=== PATIENT | male | born 1940 | race Caucasian/White ===

== ENCOUNTER 2020-10-04 08:35 | Day surgery (SDC) | payer OTHER ==
[2020-10-04] VITALS (8 sets, daily range): BP systolic 115–151; BP diastolic 41–92
[~2020-10-04] VITALS: Ht 167.6 cm; Wt 106.1 kg
[~2020-10-04 08:35] MED LIST: SODIUM CHLORIDE 0.9% 1000ML 1,000 ML IV ONE
[2020-10-04] MEDS ORDERED: MONT10TA32 PO (09:34)
[2020-10-04] MEDS ORDERED: GABA300C PO (09:34)
[2020-10-04] MEDS ORDERED: SIMV-43 PO (09:34)
[2020-10-04] MEDS ORDERED: TAMS-1 PO (09:34)
[2020-10-04] MEDS ORDERED: HYDR-4377 PO (09:34)
[2020-10-04] MEDS ORDERED: MULT-1367 PO (09:34)
[2020-10-04] MEDS ORDERED: LEVO125C4 PO (09:34)
[2020-10-04] MEDS ORDERED: PSYL0.525 PO (09:34)
[2020-10-04] MEDS ORDERED: PANT40TA54 PO (09:34)
[2020-10-04] MEDS ORDERED: FURO40TA5 PO (09:34)
[2020-10-04] MEDS ORDERED: VIT1CAPS47 PO (09:34)
[2020-10-04] MEDS ORDERED: LISI10TA24 PO (09:34)
[2020-10-04] MEDS ORDERED: TRAZ-185 PO (09:34)
[2020-10-04] MEDS ORDERED: FEXO-59 PO (09:34)
[2020-10-04] MEDS ORDERED: DOCU100C33 PO (09:34)
[2020-10-04] MEDS ORDERED: FAMO20TA8 PO (09:34)
[2020-10-04] MEDS ORDERED: AEC81 PO (09:34)
[2020-10-04] MEDS ORDERED: METO25TA6 PO (09:34)
[2020-10-04] MEDS ORDERED: PROPOFOL 10 MG/ML 20ML VIAL IV ONE (10:49)
== END 2020-10-04 11:45 | disposition home or self-care (01) ==
LOC: ENDO 08:35 → DAH 08:35 → ENDO 11:45
PROVIDERS: ATTEND Internal Medicine Gastroenterology
DX: R13.12 Dysphagia, oropharyngeal phase (principal); K31.89 Other diseases of stomach and duodenum; Z20.822 Contact with and (suspected) exposure to COVID-19; I10 Essential (primary) hypertension; E78.5 Hyperlipidemia, unspecified; I25.10 Atherosclerotic heart disease of native coronary artery without angina pectoris; E03.9 Hypothyroidism, unspecified; M19.90 Unspecified osteoarthritis, unspecified site; D64.9 Anemia, unspecified; Z95.1 Presence of aortocoronary bypass graft; Z90.89 Acquired absence of other organs; Z87.891 Personal history of nicotine dependence; Z79.890 Hormone replacement therapy; Z79.82 Long term (current) use of aspirin; Z79.84 Long term (current) use of oral hypoglycemic drugs; Z86.73 Personal history of transient ischemic attack (TIA), and cerebral infarction without residual deficits; Z86.010 Personal history of colon polyps; Z95.5 Presence of coronary angioplasty implant and graft; Z98.49 Cataract extraction status, unspecified eye
CPT/HCPCS: 43239; 82948; 93005; A4215; A4221; A4223; A4606; A4620; A4657; A4663; C9803; J2704; J7030; U0003

== ENCOUNTER 2022-07-14 12:37 | Inpatient (IN) | payer OTHER ==
[~2022-07-14] VITALS: Ht 165.1 cm; Wt 85.4 kg
[~2022-07-14 12:37] MED LIST changes: +AEC81 PO; +DOCU100C33 PO; +FAMO20TA8 PO; +FEXO-263 PO; +FURO40TA5 PO; +GABA300C PO; +HYDR-4377 PO; +LEVO125C4 PO; +LISI10TA24 PO; +METO25TA6 PO; +MONT-39 PO; +MULT-1367 PO; +PANT40TA54 PO; +PSYL0.525 PO; +SIMV-43 PO; -SODIUM CHLORIDE 0.9% 1000ML 1,000 ML IV ONE; +TAMS-1 PO; +TRAZ-185 PO; +VIT1CAPS47 PO
[2022-07-14] MEDS ORDERED: KETOROLAC 15MG/ML VIAL (15MG/ML) IV ONE (15:00)
[2022-07-14 15:09] LABS: BASOPHILS % (AUTO) 0.3 % (0.0-5.0); EOSINOPHILS % (AUTO) 0.7 % (0.0-8.0); HEMATOCRIT 29.2 % (42-54); LYMPHOCYTES % (AUTO) 18.4 % (21.0-51.0); MEAN CORPUSCULAR HEMOGLOBIN 36.7 pg (27.0-33.0); MEAN CORPUSCULAR HGB CONC 34.6 g/dL (32.0-36.0); MEAN CORPUSCULAR VOLUME 106.2 fL (79-99); MONOCYTES % (AUTO) 12.2 % (3.0-13.0); NEUTROPHILS % (AUTO) 67.9 % (40.0-77.0); PLATELET COUNT (AUTO) 356 K/uL (130-400); RED BLOOD CELL COUNT(AUTO) 2.75 MIL/uL (4.50-6.20); RED CELL DISTRIBUTION WIDTH 15.4 % (11.0-15.5); WHITE BLOOD COUNT (AUTO) 8.9 K/uL (4.8-10.8)
[2022-07-14 15:29] LABS: ALBUMIN 2.9 g/dL (3.5-5.0); CREATININE 1.4 mg/dL (0.5-1.5); CRP QUANTITATIVE 145.9 mg/L (0.00-9.0); TOTAL PROTEIN, SERUM 7.4 g/dL (6.0-8.3)
[2022-07-14 15:33] LABS: POTASSIUM 2.7 mmol/L (3.5-5.1)
[2022-07-14] MEDS ORDERED: 0.9%NACL 1000ML 1,000 ML IV ONE (16:00)
[2022-07-14] MEDS ORDERED: POTASSIUM BICARB/CIT AC 25 MEQ TABLET.EFF PO ONE (18:00)
[2022-07-14] MEDS ORDERED: DEXTROSE 50%-WATER 50 ML DISP.SYRIN IV PRN (19:30)
[2022-07-14] MEDS ORDERED: DIPHENHYDRAMINE HCL 25 MG CAPSULE PO PRN (19:30)
[2022-07-14] MEDS: 0.9%NACL 1000ML 1,000 ML IV SCH (19:30)
[2022-07-14] MEDS ORDERED: HYDRALAZINE 20MG/ML VIAL IV PRN (19:30)
[2022-07-14] MEDS ORDERED: ONDANSETRON 4MG INJ IV PRN (19:30)
[2022-07-14] MEDS ORDERED: MAG/ALUM/SIMETH 30 ML UDCUP PO PRN (19:30)
[2022-07-14] MEDS ORDERED: GLUCAGON 1MG KIT 1 MG ML IM PRN (19:30)
[2022-07-14] MEDS ORDERED: ACETAMINOPHEN 325 MG TAB PO PRN ×2 (19:30)
[2022-07-14] MEDS ORDERED: LACTULOSE 20 GM/30 ML UDCUP PO PRN (19:30)
[2022-07-14] MEDS ORDERED: MORPHINE 2 MG SYG IV PRN (20:00)
[2022-07-14 20:33] LABS: APPEARANCE,URINE CLEAR (CLEAR); BILIRUBIN,URINE NEGATIVE (NEGATIVE); COLOR,URINE YELLOW (YELLOW); GLUCOSE, URINE (UA) NEGATIVE (NEGATIVE); KETONES,URINE NEGATIVE (NEGATIVE); LEUKOCYTE ESTERASE ,URINE NEGATIVE Leu/uL (NEGATIVE); NITRATE,URINE NEGATIVE (NEGATIVE); OCCULT BLOOD,URINE SMALL (NEGATIVE); PH,URINE 5.5 (5.0-8.0); PROTEIN,URINE NEGATIVE (NEGATIVE)
[2022-07-14] MEDS: INSULIN HUMULIN R 100 UNIT/ML 3ML SQ SCH (21:00)
[2022-07-14] MEDS: FAMOTIDINE 20MG TAB PO SCH (21:00)
[2022-07-14] MEDS ORDERED: FUROSEMIDE 40MG VIAL IV SCH (21:30)
[2022-07-14] MEDS: FUROSEMIDE 40MG VIAL IV SCH (22:00)
[2022-07-15 03:30] VITALS: BP 137/52
[2022-07-15] MEDS: 0.9%NACL 1000ML 1,000 ML IV SCH ×2 (03:30→16:38)
[2022-07-15 05:38] LABS: HEMATOCRIT 30.7 % (42-54); MEAN CORPUSCULAR HEMOGLOBIN 37.1 pg (27.0-33.0); MEAN CORPUSCULAR HGB CONC 34.5 g/dL (32.0-36.0); MEAN CORPUSCULAR VOLUME 107.3 fL (79-99); RED BLOOD CELL COUNT(AUTO) 2.86 MIL/uL (4.50-6.20); RED CELL DISTRIBUTION WIDTH 15.2 % (11.0-15.5); WHITE BLOOD COUNT (AUTO) 8.8 K/uL (4.8-10.8)
[2022-07-15 05:53] LABS: CREATININE 1.5 mg/dL (0.5-1.5); MAGNESIUM 2.5 mg/dL (1.80-2.40); POTASSIUM 3.5 mmol/L (3.5-5.1)
[2022-07-15] MEDS: INSULIN HUMULIN R 100 UNIT/ML 3ML SQ SCH ×4 (07:30→21:00)
[2022-07-15 08:15] VITALS: BP 127/52
[2022-07-15] MEDS: ENOXAPARIN SODIUM 40 MG/0.4 ML SYRINGE SQ SCH (09:48)
[2022-07-15] MEDS: FUROSEMIDE 40MG VIAL IV SCH (09:48)
[2022-07-15 12:18] VITALS: BP 142/54
[2022-07-15 16:00] VITALS: BP 103/62
[2022-07-15 20:00] VITALS: BP 93/45
[2022-07-15] MEDS: FAMOTIDINE 20MG TAB PO SCH (21:53)
[2022-07-16] VITALS (8 sets, daily range): BP systolic 89–145; BP diastolic 48–63
[2022-07-16] MEDS: INSULIN HUMULIN R 100 UNIT/ML 3ML SQ SCH ×4 (06:26→20:48)
[2022-07-16] MEDS: FUROSEMIDE 40MG VIAL IV SCH (09:30)
[2022-07-16] MEDS ORDERED: VANCOMYCIN PROTOCOL PER PHARMACY IV SCH (09:30)
[2022-07-16] MEDS: ENOXAPARIN SODIUM 40 MG/0.4 ML SYRINGE SQ SCH (09:30)
[2022-07-16] MEDS: ASPIRIN 81MG CHEW TAB PO SCH (11:14)
[2022-07-16] MEDS: SACUBITRIL/VALSARTAN 1 EACH TABLET PO SCH (20:47)
[2022-07-16] MEDS: FAMOTIDINE 20MG TAB PO SCH (20:48)
[2022-07-17 04:36] VITALS: BP 138/84
[2022-07-17] MEDS: INSULIN HUMULIN R 100 UNIT/ML 3ML SQ SCH ×4 (05:25→20:45)
[2022-07-17 06:08] LABS: BASOPHILS % (AUTO) 0.7 % (0.0-5.0); EOSINOPHILS % (AUTO) 3.5 % (0.0-8.0); HEMATOCRIT 35.2 % (42-54); LYMPHOCYTES % (AUTO) 18.5 % (21.0-51.0); MEAN CORPUSCULAR HEMOGLOBIN 37.1 pg (27.0-33.0); MEAN CORPUSCULAR HGB CONC 35.2 g/dL (32.0-36.0); MEAN CORPUSCULAR VOLUME 105.4 fL (79-99); MONOCYTES % (AUTO) 9.9 % (3.0-13.0); NEUTROPHILS % (AUTO) 66.9 % (40.0-77.0); PLATELET COUNT (AUTO) 507 K/uL (130-400); RED BLOOD CELL COUNT(AUTO) 3.34 MIL/uL (4.50-6.20); RED CELL DISTRIBUTION WIDTH 14.8 % (11.0-15.5); WHITE BLOOD COUNT (AUTO) 9.5 K/uL (4.8-10.8)
[2022-07-17 06:12] LABS: CREATININE 1.6 mg/dL (0.5-1.5); POTASSIUM 3.8 mmol/L (3.5-5.1)
[2022-07-17 08:00] VITALS: BP 120/44
[2022-07-17] MEDS: FUROSEMIDE 40MG VIAL IV SCH (08:43)
[2022-07-17] MEDS: ACETAMINOPHEN WITH CODEINE 1 TAB TAB PO PRN ×2 (08:43→14:39)
[2022-07-17] MEDS: CARVEDILOL 3.125 MG TABLET PO SCH (08:44)
[2022-07-17] MEDS: ENOXAPARIN SODIUM 40 MG/0.4 ML SYRINGE SQ SCH (08:45)
[2022-07-17] MEDS: SACUBITRIL/VALSARTAN 1 EACH TABLET PO SCH ×2 (08:45→20:42)
[2022-07-17] MEDS: ASPIRIN 81MG CHEW TAB PO SCH (08:45)
[2022-07-17 11:45] VITALS: BP 90/41
[2022-07-17] MEDS ORDERED: HYDR500C2 PO (14:32)
[2022-07-17] MEDS ORDERED: IRON1CAP30 PO (14:32)
[2022-07-17] MEDS ORDERED: METO2.5T2 PO (14:32)
[2022-07-17 15:49] VITALS: BP 84/40
[2022-07-17 19:57] VITALS: BP 110/84
[2022-07-17] MEDS: FAMOTIDINE 20MG TAB PO SCH (20:42)
[2022-07-17 23:33] VITALS: BP 122/46
[2022-07-18 03:39] VITALS: BP 101/56
[2022-07-18] MEDS: INSULIN HUMULIN R 100 UNIT/ML 3ML SQ SCH ×4 (06:38→20:40)
[2022-07-18 08:00] VITALS: BP 107/60
[2022-07-18] MEDS: ASPIRIN 81MG CHEW TAB PO SCH (09:07)
[2022-07-18] MEDS: CARVEDILOL 3.125 MG TABLET PO SCH (09:08)
[2022-07-18] MEDS: SACUBITRIL/VALSARTAN 1 EACH TABLET PO SCH ×2 (09:08→20:40)
[2022-07-18] MEDS: ENOXAPARIN SODIUM 40 MG/0.4 ML SYRINGE SQ SCH (09:08)
[2022-07-18] MEDS: FUROSEMIDE 40MG VIAL IV SCH (09:09)
[2022-07-18] MEDS: ACETAMINOPHEN WITH CODEINE 1 TAB TAB PO PRN (09:11)
[2022-07-18 12:00] VITALS: BP 84/43
[2022-07-18] MEDS ORDERED: HYDROXYUREA 500 MG CAP PO SCH (14:30)
[2022-07-18 16:00] VITALS: BP 83/41
[2022-07-18 16:30] VITALS: BP 107/42
[2022-07-18] MEDS ORDERED: HYDR500C2 PO (19:36)
[2022-07-18] MEDS ORDERED: METO25TA6 PO (20:03)
[2022-07-18] MEDS ORDERED: FOLI0.8T41 PO (20:03)
[2022-07-18 20:33] VITALS: BP 105/51
[2022-07-18] MEDS: FAMOTIDINE 20MG TAB PO SCH (20:40)
[2022-07-18] MEDS: GABAPENTIN 300 MG CAPSULE PO SCH (20:40)
[2022-07-18] MEDS ORDERED: MONTELUKAST SODIUM 10 MG TAB PO SCH (21:00)
[2022-07-18] MEDS ORDERED: TRAZODONE HCL 50 MG TAB PO SCH (21:00)
[2022-07-18] MEDS ORDERED: PHARMACY COMMUNICATION MISC SCH (21:30)
[2022-07-19 00:15] VITALS: BP 113/55
[2022-07-19 03:58] VITALS: BP 105/45
[2022-07-19 05:14] LABS: BASOPHILS % (AUTO) 0.9 % (0.0-5.0); EOSINOPHILS % (AUTO) 4.9 % (0.0-8.0); HEMATOCRIT 33.3 % (42-54); LYMPHOCYTES % (AUTO) 26.5 % (21.0-51.0); MEAN CORPUSCULAR HEMOGLOBIN 36.7 pg (27.0-33.0); MEAN CORPUSCULAR HGB CONC 34.5 g/dL (32.0-36.0); MEAN CORPUSCULAR VOLUME 106.4 fL (79-99); MONOCYTES % (AUTO) 11.7 % (3.0-13.0); NEUTROPHILS % (AUTO) 55.7 % (40.0-77.0); PLATELET COUNT (AUTO) 432 K/uL (130-400); RED BLOOD CELL COUNT(AUTO) 3.13 MIL/uL (4.50-6.20); RED CELL DISTRIBUTION WIDTH 14.9 % (11.0-15.5)
[2022-07-19 05:34] LABS: ALBUMIN 2.9 g/dL (3.5-5.0); CREATININE 3.1 mg/dL (0.5-1.5); MAGNESIUM 2.3 mg/dL (1.80-2.40); POTASSIUM 3.4 mmol/L (3.5-5.1); TOTAL PROTEIN, SERUM 7.4 g/dL (6.0-8.3)
[2022-07-19] MEDS ORDERED: LEVOTHYROXINE 125 MCG TABLET PO SCH (06:30)
[2022-07-19] MEDS: INSULIN HUMULIN R 100 UNIT/ML 3ML SQ SCH (06:32)
[2022-07-19] MEDS ORDERED: APIX5TAB PO (07:59)
[2022-07-19 08:00] VITALS: BP 117/50
[2022-07-19] MEDS ORDERED: IRON FUM PO SCH (09:00)
[2022-07-19] MEDS ORDERED: MULTIVITAMIN TABLET PO SCH (09:00)
[2022-07-19] MEDS ORDERED: [UNRECOGNIZED DRUG - OTHER] PO SCH (09:00)
[2022-07-19] MEDS ORDERED: VIT C PO SCH (09:00)
[2022-07-19] MEDS ORDERED: APIXABAN 5 MG TABLET PO SCH (09:00)
[2022-07-19] MEDS ORDERED: PS CMP PO SCH (09:00)
[2022-07-19] MEDS ORDERED: TAMSULOSIN HCL 0.4 MG CAP.ER.24H PO SCH (09:00)
[2022-07-19] MEDS: ASPIRIN 81MG CHEW TAB PO SCH (09:02)
[2022-07-19] MEDS: SACUBITRIL/VALSARTAN 1 EACH TABLET PO SCH (09:02)
[2022-07-19] MEDS: FUROSEMIDE 40MG VIAL IV SCH (09:03)
[2022-07-19] MEDS: GABAPENTIN 300 MG CAPSULE PO SCH (09:03)
[2022-07-19 09:08] VITALS: BP 117/50
[2022-07-19] MEDS: CARVEDILOL 3.125 MG TABLET PO SCH (09:08)
[2022-07-19] MEDS ORDERED: SACU1TAB PO (13:04)
[2022-07-19] MEDS ORDERED: CARV3.1262 PO (13:04)
[2022-07-19] MEDS ORDERED: FURO40TA7 PO (13:05)
== END 2022-07-19 10:30 | disposition home or self-care (01) | DRG 280 ==
LOC: EDH 12:37 → EDHIP 19:30 → OBSVTOIN 19:30 → 3DH 07-15 03:30
PROVIDERS: ADMIT Internal Medicine; ATTEND Internal Medicine
DX: I21.4 Non-ST elevation (NSTEMI) myocardial infarction (principal); I50.41 Acute combined systolic (congestive) and diastolic (congestive) heart failure; N17.9 Acute kidney failure, unspecified; I13.0 Hypertensive heart and chronic kidney disease with heart failure and stage 1 through stage 4 chronic kidney disease, or unspecified chronic kidney disease; I82.402 Acute embolism and thrombosis of unspecified deep veins of left lower extremity; Z20.822 Contact with and (suspected) exposure to COVID-19; M06.4 Inflammatory polyarthropathy; E86.0 Dehydration; I25.10 Atherosclerotic heart disease of native coronary artery without angina pectoris; E87.6 Hypokalemia; D47.3 Essential (hemorrhagic) thrombocythemia; I35.0 Nonrheumatic aortic (valve) stenosis; E11.22 Type 2 diabetes mellitus with diabetic chronic kidney disease; K21.9 Gastro-esophageal reflux disease without esophagitis; E78.00 Pure hypercholesterolemia, unspecified; M19.90 Unspecified osteoarthritis, unspecified site; N18.9 Chronic kidney disease, unspecified; N40.0 Benign prostatic hyperplasia without lower urinary tract symptoms; Z95.1 Presence of aortocoronary bypass graft; Z87.891 Personal history of nicotine dependence; Z79.899 Other long term (current) drug therapy; Z79.82 Long term (current) use of aspirin; Z79.01 Long term (current) use of anticoagulants
CPT/HCPCS: 36415; 71045; 72170; 73030; 80048; 80053; 81001; 82550; 82948; 83735; 83880; 84132; 84484; 85025; 85027; 86140; 87040; 87077; 87186; 87635; 87804; 93005; 93306; 93925; 93970; C9803; G0378; J1650; J1885; J1940; Q0163